=== PATIENT | male | born 1960 | race Caucasian/White ===

== ENCOUNTER 2022-08-17 05:34 | Day surgery (SDC) | payer OTHER ==
[2022-08-10 16:19] LABS: ALBUMIN 3.9 G/DL (3.4-5.0); ALBUMIN/GLOBULIN RATIO 1.1 (1.1-1.5); ALKALINE PHOSPHATASE 72 IU/L (46-116); BASOPHILS % (AUTO) 0.5 % (0-1); BLOOD UREA NITROGEN 19 MG/DL (7-18); BUN/CREATININE RATIO 21.8 (5.4-32.0); CALCIUM 8.9 MG/DL (8.5-10.1); CHLORIDE 106 MMOL/L (99-107); CREATININE 0.87 MG/DL (0.60-1.10); EOSINOPHILS # (AUTO) 0.2 X10'3 (0-0.9); EOSINOPHILS % (AUTO) 3.7 % (0-6); LYMPHOCYTES # (AUTO) 1.6 X10'3 (1.1-4.8); LYMPHOCYTES % (AUTO) 24.3 % (21-51); MEAN CORPUSCULAR HEMOGLOBIN 30.1 PG (27.0-31.0); MEAN CORPUSCULAR HGB CONC 34.1 g/dL (33.0-36.5); MEAN CORPUSCULAR VOLUME 88.4 FL (78-98); MEAN PLATELET VOLUME 9.2 FL (7.4-10.4); MONOCYTES # (AUTO) 0.7 X10'3 (0-0.9); MONOCYTES % (AUTO) 10.3 % (2-12); NEUTROPHILS # (AUTO) 3.9 X10'3 (1.8-7.7); NEUTROPHILS % (AUTO) 61.2 % (42-75); PRE OP ALT 61 U/L (30-65); PRE OP ANION GAP 9 (8-16); PRE OP AST 37 U/L (10-37); PRE OP BILIRUB, TOTAL 0.4 MG/DL (0.0-1.0); PRE OP GLUCOSE 103 MG/DL (70-104); PRE OP HEMATOCRIT 38.3 % (42.0-52.0); PRE OP HEMOGLOBIN 13.1 g/dL (14.0-17.9); PRE OP PLATELET COUNT 186 X10'3 (140-440); PRE OP POTASSIUM 3.6 MMOL/L (3.4-5.1); PRE OP SODIUM 140 MMOL/L (135-145); RED BLOOD COUNT 4.33 X10'6 (4.70-6.10); RED CELL DISTRIBUTION WIDTH 14.3 % (11.5-14.5); TOTAL CARBON DIOXIDE 25.3 MMOL/L (24-32); TOTAL PROTEIN 7.4 G/DL (6.4-8.2); eGFR 89 ML/MIN
[~2022-08-17] VITALS: Ht 177.8 cm; Wt 116.5 kg
[2022-08-17] VITALS (25 sets, daily range): BP systolic 72–134; BP diastolic 36–88
[~2022-08-17 05:34] MED LIST: ATOR20TA66 PO; DILT120T PO; HYDR25TA4 PO; LOSA100T57 PO; NAPR-996 PO; TRAM50TA2 PO; acetaminophen 325mg tablet PO ONE; cefazolin 2gm/D5W 100mL 100 ML IV ONE; celeCOXIB 100mg capsule PO ONE; famotidine 20mg tablet PO ONE; gabapentin 300mg capsule PO ONE; metoclopramide 5 mg/ml inj IV ONE; oxyCODONE SR 10mg (sust. release) tab -2 tabs (20mg) PO ONE; tranexamic acid inj. 1,000 MG in normal saline IV soln 100ML IV ONE; vancomycin 1,500 MG in NS 300ml IV soln IV ONE
[2022-08-17] MEDS: ringers solution, lacted 1,000 ML IV SCH ×2 (06:26→12:02)
[2022-08-17] MEDS ORDERED: diphenhydrAMINE 25mg capsule PO PRN ×2 (06:30)
[2022-08-17] MEDS ORDERED: HYDROmorphone 1 mg/ml syringe IV PRN (06:30)
[2022-08-17] MEDS ORDERED: HYDROmorphone inj. 0.5 MG/0.5 ML DISP.SYRIN IV PRN (06:30)
[2022-08-17] MEDS: potassium cl 20mEq in 1/2 NS 1,000 ML IV SCH ×4 (06:30→23:52)
[2022-08-17] MEDS ORDERED: acetaminophen 325mg tablet PO PRN (06:30)
[2022-08-17] MEDS ORDERED: ondansetron/PF 4mg/2ml inj IV PRN ×2 (06:30→08:05)
[2022-08-17] MEDS ORDERED: naloxone 0.4 mg/ml inj IV PRN (06:30)
[2022-08-17] MEDS ORDERED: magnesium hydroxide 30ml (MOM) UD suspension PO PRN (06:30)
[2022-08-17] MEDS ORDERED: ROPIVAcaine inj 250 MG, ketorolac tromethamine inj. 15 MG, CloNIDine/PF inj 80 MCG, epi... IU STA ×5 (06:37)
[2022-08-17] MEDS ORDERED: vancomycin 1,000mg inj ONE (06:39)
--- NOTE | 2022-08-17 06:45 | NUR ---
PT STATES HE SHOWERED PER JOINT REPLACEMENT PROTOCOL, DENIES ANY DECREASE OR PROBLEMS W/SENSATION IN BILAT LE'S, STATES HE DID NOT WATCH THE JOINT REPLACEMENT DVD OR READ BROCHERE HE HAD A TKA IN 2019. Addendum: 08/17/22 at 0748 by Pepper Tamayo RN Amended: Links added.
[2022-08-17] MEDS ORDERED: ePHEDrine 50MG/ML INJ. ONE (06:56)
[2022-08-17] MEDS ORDERED: MIDAZolam 1mg/ml 10ml vial ONE (07:05)
[2022-08-17] MEDS ORDERED: fentaNYL/PF 50MCG/1 ML 2ML syringe ONE (07:05)
[2022-08-17] MEDS ORDERED: propofol inj 20 ML IV ONE ×2 (07:46)
[2022-08-17] MEDS ORDERED: ROPIVAcaine 0.5% (5mg/ml) 30ml vial ONE (07:46)
[2022-08-17] MEDS ORDERED: meperidine/PF 25mg/ml syringe IV PRN ×3 (08:05)
[2022-08-17] MEDS ORDERED: proCHLORperazine 10 MG/2 ml inj IV PRN (08:05)
[2022-08-17] MEDS ORDERED: ROPIVAcaine 0.2% (10 MG/5 ML) BOLUS INJECTION ADDCANAL PRN (08:05)
[2022-08-17] MEDS ORDERED: morphine 4 MG/ML inj SYRINge IV PRN (08:05)
[2022-08-17] MEDS ORDERED: morphine 2 MG/ML inj. syringe IV PRN (08:05)
[2022-08-17] MEDS ORDERED: ringers solution, lacted 1,000 ML IV SCH (08:05)
[2022-08-17] MEDS ORDERED: bisacodyl 10mg suppository rectal RC PRN (08:08)
--- NOTE | 2022-08-17 08:55 | NUR ---
Received from OR via ORTHO BED , accompanied by Anesthesiologist ASAEL and report given by Anesthesiolgist. PATIENT WITH 20G PIV IN RIGHT UE RUNNING LR AT 100. DENIES PAIN. SENSATION LEVEL T10 FROM SPINAL ANESTHESIA. RIGHT KNEE WRAP ON WITH SHITAL VAC AND ON Q NERVE BLOCK SITE. PATIENT WITH 3L NASAL DONNED WITH 99% SATURATIONS. VSS. WILL CONTINUE TO ASSESS. Addendum: 08/17/22 at 0918 by Olaf Tabares RN, RN Amended: Links added.
[2022-08-17] MEDS: ROPIVAcaine 0.2%/PF PUMP/bolus 545 ML ADDCANAL SCH (09:24)
--- NOTE | 2022-08-17 11:03 | NUR ---
PRESENT AND 2 RAILS DOWN. RN AWARE THAT PATIENT HAS ARRIVED. AND ACCEPTS -[facility]XA[facility] CARE OF REPORT GIVEN AND ALL QUESTIONS ANSWERED. PATIENT TRANSFERRED TO SURG/ORTHO PCU ICU. LABELED BELONGINGS PRESENT AND DELIVERED TO ROOM. RN PRESENT ALL CRITERIA FOR TRANSFER BACK TO THE FLOOR HAS BEEN ACHIEVED. VSS. PAIN AT A TOLERABLE LEVEL. BED LOW, CALL LIGHT PATIENT.ROXANA TO ASSUME CARE OF PATIENT. SPOUSE WITH PATIENT. Addendum: 08/17/22 at 1119 by Olaf Tabares RN, RN Amended: Links added.
[2022-08-17] MEDS ORDERED: tranexamic acid inj. 1,000 MG in normal saline 100ml IV soln 100 ML IV ONE (11:30)
[2022-08-17] MEDS: HYDROcodone/acetaminophen 10/325mg tab PO PRN ×4 (11:55→23:50)
[2022-08-17] MEDS: gabapentin 300mg capsule PO SCH ×2 (13:20→19:56)
--- NOTE | 2022-08-17 18:05 | NUR ---
Problems reprioritized. Patient report given, questions answered & plan of care reviewed with Soo KUNZ.
--- NOTE | 2022-08-17 18:29 | NUR ---
Patient in room [facility]. I have received report from JOAQUINA Yang and had the opportunity to ask questions and assume patient care.
[2022-08-17] MEDS ORDERED: VANCOMYCIN 1,500MG inj. 1,500 MG in normal saline 500ml IV soln 300 ML IV ONE (20:00)
[2022-08-17] MEDS ORDERED: sennosides 8.6mg tablet PO SCH (21:00)
[2022-08-18 02:00] VITALS: BP 122/66
[2022-08-18] MEDS: HYDROcodone/acetaminophen 10/325mg tab PO PRN ×2 (04:38→09:06)
[2022-08-18 06:00] VITALS: BP 111/69
--- NOTE | 2022-08-18 06:00 | NUR ---
Patient in room [facility]. I have received report from Soo KUNZ and had the opportunity to ask questions and assume patient care.
--- NOTE | 2022-08-18 06:26 | NUR ---
Problems reprioritized. Patient report given, questions answered & plan of care reviewed with JOAQUINA Elizalde.
[2022-08-18 06:55] LABS: BASOPHILS % (AUTO) 0.5 % (0-1); EOSINOPHILS # (AUTO) 0.2 X10'3 (0-0.9); EOSINOPHILS % (AUTO) 3.1 % (0-6); HEMATOCRIT 32.8 % (42.0-52.0); HEMOGLOBIN 11.4 g/dl (14.0-17.9); LYMPHOCYTES # (AUTO) 1.4 X10'3 (1.1-4.8); LYMPHOCYTES % (AUTO) 21.2 % (21-51); MEAN CORPUSCULAR HEMOGLOBIN 30.8 PG (27.0-31.0); MEAN CORPUSCULAR HGB CONC 34.8 g/dL (33.0-36.5); MEAN CORPUSCULAR VOLUME 88.3 FL (78-98); MEAN PLATELET VOLUME 8.8 FL (7.4-10.4); MONOCYTES # (AUTO) 0.8 X10'3 (0-0.9); MONOCYTES % (AUTO) 11.9 % (2-12); NEUTROPHILS # (AUTO) 4.3 X10'3 (1.8-7.7); NEUTROPHILS % (AUTO) 63.3 % (42-75); PLATELET COUNT 144 X10'3 (140-440); RED BLOOD COUNT 3.72 X10'6 (4.70-6.10); RED CELL DISTRIBUTION WIDTH 13.9 % (11.5-14.5); WHITE BLOOD COUNT 6.8 X10'3 (4.5-11.0)
[2022-08-18 07:07] LABS: ANION GAP 6 (8-16); CHLORIDE 107 MMOL/L (99-107); SODIUM 138 MMOL/L (135-145); TOTAL CARBON DIOXIDE 25.5 MMOL/L (24-32)
[2022-08-18] MEDS ORDERED: losartan 50mg tablet PO SCH (08:00)
[2022-08-18] MEDS ORDERED: multivitamins, therapeutics tablet PO SCH (08:00)
[2022-08-18] MEDS ORDERED: HYDROchlorothiazide 25mg tablet PO SCH (08:00)
[2022-08-18] MEDS ORDERED: atorvastatin 20mg tablet PO SCH (08:00)
[2022-08-18] MEDS ORDERED: ascorbic acid 500mg tablet PO SCH (08:00)
[2022-08-18] MEDS ORDERED: diltiazem CD 120mg capsule (once-daily) PO SCH (08:00)
[2022-08-18] MEDS ORDERED: aspirin 325mg tablet PO SCH (08:30)
[2022-08-18 08:45] VITALS: BP 157/88
[2022-08-18] MEDS: gabapentin 300mg capsule PO SCH (09:00)
--- NOTE | 2022-08-18 09:05 | NUR ---
Student Medication Administration: For this medication-pass time frame, all medication were reviewed, dispensed, administered and documented per hospital policy by virgilio student nurse and christofer rn instructor.
[2022-08-18] MEDS: ROPIVAcaine 0.2%/PF PUMP/bolus 545 ML ADDCANAL SCH (10:14)
--- NOTE | 2022-08-18 10:15 | NUR ---
Student Medication Administration: For this medication-pass time frame, all medication were reviewed, dispensed, administered and documented per hospital policy by virgilio holder and christofer rn instructor.
[2022-08-18 10:58] VITALS: BP 148/88
--- NOTE | 2022-08-18 11:45 | NUR ---
Pt dc to home via private vehicle, accompanied by . Escorted to vehicle in wheelchair by staff. PIV dc with canulla intact, no s/sx of infection or pain r/t dc. Pt and both verbally agreeable and understanding to all dc instructions and information provided. On Q and SHITAL dressing information provided to patient upon DC with new On Q ball administered.
--- NOTE | 2022-08-18 12:11 | NUR ---
Pt s/p right TKA, discharged prior to RD being available for bedside visit. Written high protein education with ONS coupons and RD contact information mailed to patient's home address found in EMR. Will remain available. Addendum: 08/18/22 at [address] Amended: Links added.
--- NOTE | 2022-08-18 15:01 | NUR ---
Student documentation: I have reviewed and agree with all interventions, assessments performed and documented by Shahnaz Herbert Student nurse, by Damaris Reaves RN Instructor.
[2022-08-18] MEDS ORDERED: celeCOXIB 100mg capsule PO SCH (20:00)
== END 2022-08-18 11:45 | disposition home or self-care (01) ==
LOC: PAS 05:34 → SUR 3N 06:34 → PAS 08-18 11:45
PROVIDERS: ATTEND Orthopaedic Surgery
DX: M17.11 Unilateral primary osteoarthritis, right knee (principal); I10 Essential (primary) hypertension; G89.18 Other acute postprocedural pain; E66.9 Obesity, unspecified; Z68.22 Body mass index [BMI] 22.0-22.9, adult; Z96.652 Presence of left artificial knee joint; Z98.890 Other specified postprocedural states; Z79.899 Other long term (current) drug therapy; Z79.82 Long term (current) use of aspirin; Z82.49 Family history of ischemic heart disease and other diseases of the circulatory system
CPT/HCPCS: 27447; 36415; 64448; 73560; 80051; 80053; 82948; 85025; 86885; 86900; 86901; 87081; 93005; 97110; 97161; C1713; C1776; J0690; J2250; J2704; J2765; J2795; J3010; J3370; J3480; J3490; J7030; J7040; J7060; J7120; Z7506; Z7508; Z7512; 97530; A4215; A4615; A6449; A7000; G0378

== ENCOUNTER 2025-04-14 16:04 | Outpatient (CLI) | payer MEDICARE ==
[~2025-04-14 16:04] MED LIST changes: -LOSA100T57 PO; +LOSA100T58 PO; +NAPR-1168 PO; -NAPR-996 PO; -acetaminophen 325mg tablet PO ONE; -cefazolin 2gm/D5W 100mL 100 ML IV ONE; -celeCOXIB 100mg capsule PO ONE; -famotidine 20mg tablet PO ONE; -gabapentin 300mg capsule PO ONE; -metoclopramide 5 mg/ml inj IV ONE; -oxyCODONE SR 10mg (sust. release) tab -2 tabs (20mg) PO ONE; -tranexamic acid inj. 1,000 MG in normal saline IV soln 100ML IV ONE; -vancomycin 1,500 MG in NS 300ml IV soln IV ONE
[2025-04-14 16:34] LABS: CREATININE 0.91 MG/DL (0.60-1.10); TOTAL CARBON DIOXIDE 28.4 MMOL/L (24-32); eGFR 83 ML/MIN
== END 2025-04-14 23:59 | disposition home or self-care (01) ==
LOC: RAD 16:04
PROVIDERS: ATTEND Family Medicine
DX: R79.9 Abnormal finding of blood chemistry, unspecified (principal); R53.83 Other fatigue
CPT/HCPCS: 36415; 80048

== ENCOUNTER 2025-04-28 08:32 | Outpatient (CLI) | payer MEDICARE ==
[~2025-04-28 08:32] MED LIST changes: +iohexol 300mg/ml 100ml inj. ONE
[2025-04-28] MEDS ORDERED: iohexol 300mg/ml 100ml inj. ONE (08:45)
--- NOTE | 2025-04-28 09:17 | RADIOLOGY REPORT ---
CLINICAL HISTORY: PERIUMBILIC SWELLING, MASS OR LUMP TECHNIQUE: CT of the abdomen and pelvis was performed with IV contrast. This exam was performed according to our departmental dose optimization program. Up-to-date CT equipment and radiation dose reduction techniques are utilized as appropriate. CTDI 24 DLP 1278 COMPARISON: None FINDINGS: Abdomen/Pelvis: The spleen, pancreas, gallbladder, adrenal glands, liver, left kidney, bladder, and prostate gland are unremarkable. There is mild left renal cortical scarring posteriorly. The abdominal aorta is normal in course and caliber. There are mild atherosclerotic calcifications. There is no free intraperitoneal air. There is trace nonspecific free fluid in the deep pelvis. There is no enlarged abdominal or pelvic lymph node. There is no bowel wall thickening or dilatation. The appendix is normal. There has been ventral hernia repair. Other: The imaged lower thorax demonstrates right coronary artery calcifications. There are mild atelectatic changes at both lower lobes. No acute osseous abnormality is evident. IMPRESSION: No acute CT abnormality of the abdomen/pelvis.
== END 2025-04-28 23:59 | disposition home or self-care (01) ==
LOC: RAD 08:32
PROVIDERS: ATTEND Family Medicine
DX: I25.10 Atherosclerotic heart disease of native coronary artery without angina pectoris (principal); R19.05 Periumbilic swelling, mass or lump; J98.11 Atelectasis; R59.0 Localized enlarged lymph nodes; M47.814 Spondylosis without myelopathy or radiculopathy, thoracic region
CPT/HCPCS: 74176; Q9967